=== PATIENT | male | born 1985 | race Caucasian/White ===

== ENCOUNTER 2023-10-21 15:50 | Emergency (ER) | payer BC, OTHER ==
[2023-10-21] MEDS ORDERED: Sodium Chloride 0.9% 10 ML Syringe FLUSH PRN (15:59)
[2023-10-21 16:08] LABS: BASOPHILS ABSOLUTE AUTO 0.1 x10^3/uL (0.0-0.2); BASOPHILS PERCENT AUTO 0.8 % (0.2-1.2); EOSINOPHILS ABSOLUTE AUTO 0.6 x10^3/uL (0.0-0.5); EOSINOPHILS PERCENT AUTO 9.6 % (0.0-4.0); HEMATOCRIT 43.8 % (40.0-52.0); HEMOGLOBIN 15.3 g/dL (14.0-18.0); IMMATURE GRAN ABSOLUTE AUTO 0.01 x10^3/uL (0.00-0.07); LYMPHOCYTES ABSOLUTE AUTO 1.5 x10^3/uL (1.0-4.8); LYMPHOCYTES PERCENT AUTO 24.9 % (25.0-50.0); MEAN CORPUSCULAR HEMOGLOBIN 30.1 pg (26.0-32.0); MEAN CORPUSCULAR HGB CONC 34.9 g/dL (32.0-36.0); MEAN CORPUSCULAR VOLUME 86.1 fL (78.0-93.0); MONOCYTES ABSOLUTE AUTO 0.5 x10^3/uL (0.0-0.8); MONOCYTES PERCENT AUTO 8.5 % (2.0-11.0); NEUTROPHILS ABSOLUTE AUTO 3.4 x10^3/uL (1.8-7.7); PLATELET COUNT,PLT 199 x10^3/uL (130-400); RED BLOOD CELL COUNT 5.09 x10^6/uL (4.5-6.0); WHITE BLOOD CELL COUNT,WBC 6.1 x10^3/uL (4.0-10.0)
[2023-10-21] MEDS: Sodium Chloride 0.9% 1,000 ML IV SCH (16:10)
[2023-10-21] MEDS: Ondansetron 4 MG/2 ML SDV IVPUSH ONE (16:12)
[2023-10-21] MEDS: Ketorolac 15 MG/ML SDV IVPUSH ONE (16:14)
[2023-10-21] MEDS: HYDROmorphone 1 MG/ML Syringe IVPUSH ONE (16:16)
[2023-10-21 16:20] LABS: APPEARANCE,URINE TURBID (CLEAR); BILIRUBIN,URINE NEGATIVE (NEGATIVE); COLOR,URINE RED (YELLOW); GLUCOSE,URINE NEGATIVE (NEGATIVE); KETONES,URINE NEGATIVE (NEGATIVE); LEUKOCYTE ESTERASE,URINE NEGATIVE (NEGATIVE); NITRITE,URINE NEGATIVE (NEGATIVE); OCCULT BLOOD,URINE MODERATE (NEGATIVE); PH,URINE 6.5 (5.0-8.0); PROTEIN,URINE 100 mg/dL (NEGATIVE); UROBILINOGEN,URINE 0.2 EU/dL (0.2)
[2023-10-21 16:23] LABS: BACTERIA,URINE RARE /HPF (NOT SEEN); MUCUS,URINE OCCASIONAL /LPF (NOT SEEN); RBC,URINE PACKED /HPF (NOT SEEN); WBC,URINE 0-5 /HPF (NOT SEEN)
[2023-10-21 16:24] LABS: A/G RATIO 1.19; ALANINE AMINOTRANSFERASE,ALT 53 U/L (16-63); ALBUMIN 3.8 g/dL (3.4-5.0); ALKALINE PHOSPHATASE 56 U/L (46-116); ASPARTATE AMNIOTRANSFERASE,AST 21 U/L (15-37); BILIRUBIN TOTAL 0.4 mg/dL (0.2-1.0); BLOOD UREA NITROGEN,BUN 11 mg/dL (7-18); CALCIUM 8.7 mg/dL (8.5-10.1); CARBON DIOXIDE,CO2 25 mmol/L (21-32); CHLORIDE,CL 102 mmol/L (98-107); CREATININE 1.1 mg/dL (0.70-1.30); GLUCOSE RANDOM 162 mg/dL (70-99); POTASSIUM,K 3.7 mmol/L (3.5-5.1); SODIUM,NA 141 mmol/L (136-145)
[2023-10-21 16:25] LABS: ANION GAP 17.7 mmol/L (5-15); ESTIMATED GFR 87 mL/min (>=60)
[2023-10-21 17:41] VITALS: BP 128/74; PULSE 58
[2023-10-21] MEDS: Take Home: Acetaminophen/HYDROcodone 325-5 MG, 5 Tab Pack PO ONE (17:58)
[2023-10-21] MEDS: Tamsulosin 0.4 MG Cap.ER PO ONE (17:58)
== END 2023-10-21 18:04 | disposition home or self-care (01) ==
LOC: VM.ED 15:50
DX: N13.2 Hydronephrosis with renal and ureteral calculous obstruction (principal)
CPT/HCPCS: 74176; 80053; 81001; 85025; 96374; 96375; 99284; A9270; J1170; J1885; J2405; J7030